=== PATIENT | female | born 1970 | race Hispanic/Latino ===

== ENCOUNTER 2017-09-25 00:55 | Emergency (ER) | payer BC ==
[~2017-09-25] VITALS: Ht 160 cm; Wt 71.7 kg
[2017-09-25 01:35] VITALS: BP 132/76
[2017-09-25] MEDS ORDERED: ZOFRAN ODT4 MG SL (01:41)
[2017-09-25] MEDS ORDERED: SODIUM CHLORIDE 0.9% 1000ML 1,000 ML IV ONE (01:45)
== END 2017-09-25 03:38 | disposition home or self-care (01) ==
LOC: ER 00:55
DX: R42 Dizziness and giddiness (principal); R11.2 Nausea with vomiting, unspecified; E86.0 Dehydration; J02.0 Streptococcal pharyngitis; J11.1 Influenza due to unidentified influenza virus with other respiratory manifestations
CPT/HCPCS: 99283; J7030

== ENCOUNTER 2018-11-04 20:42 | Emergency (ER) | payer BC ==
[~2018-11-04] VITALS: Ht 177.8 cm; Wt 98.0 kg
[~2018-11-04 20:42] MED LIST: ZOFRAN ODT4 MG SL
--- NOTE | 2018-11-04 21:57 | Diagnostic Imaging Report ---
KNEE 2 VIEW LT - HOPD HISTORY: Fall. COMPARISON: None available. FINDINGS: Bones: No acute displaced fracture. Osseous alignment is within normal limits. Joints: The joint spaces are well-maintained. Soft tissues: The soft tissues appear unremarkable. IMPRESSION: No acute radiographic abnormality. Signed by: DR. Tonny Scott MD on 11/04/2018 9:54 PM
== END 2018-11-04 22:24 | disposition home or self-care (01) ==
LOC: FSED 20:42
DX: G89.11 Acute pain due to trauma (principal); S80.02XA Contusion of left knee, initial encounter; S80.212A Abrasion, left knee, initial encounter; W01.0XXA Fall on same level from slipping, tripping and stumbling without subsequent striking against object, initial encounter; Y92.512 Supermarket, store or market as the place of occurrence of the external cause; F41.9 Anxiety disorder, unspecified
CPT/HCPCS: 99283